=== PATIENT | female | born 1995 | race Caucasian/White ===

== ENCOUNTER 2021-07-04 15:03 | Emergency (ER) | payer OTHER ==
[~2021-07-04] VITALS: Ht 172.7 cm; Wt 126.7 kg
[2021-07-04 15:31] VITALS: BP 141/72
--- NOTE | 2021-07-04 16:28 | NUR ---
PT TAKEN TO XRAY VIA W/C
[2021-07-04] MEDS ORDERED: IBUP-2213 PO (17:52)
[2021-07-04] MEDS ORDERED: METH-1681 PO (17:52)
[2021-07-04 18:03] VITALS: BP 141/72
--- NOTE | 2021-07-04 18:03 | NUR ---
Patient discharged with v/s stable. Written and verbal after care instructions given and explained. Patient alert, oriented and verbalized understanding of instructions. Ambulatory with steady gait. All questions addressed prior to discharge. ID band removed. Patient advised to follow up with PMD. Rx of METHOCARBAMOL, IBUPROFEN given. Patient educated on indication of medication including possible reaction and side effects. Opportunity to ask questions provided and answered.
== END 2021-07-04 18:03 | disposition home or self-care (01) ==
LOC: MED 15:03
DX: S16.1XXA Strain of muscle, fascia and tendon at neck level, initial encounter (principal); S60.222A Contusion of left hand, initial encounter; Z98.890 Other specified postprocedural states; V89.2XXA Person injured in unspecified motor-vehicle accident, traffic, initial encounter; Y93.89 Activity, other specified; Y92.89 Other specified places as the place of occurrence of the external cause; Y99.8 Other external cause status
CPT/HCPCS: 72050; 73060; 73070; 73120; 99284